=== PATIENT | male | born 1995 | race African-American/Black ===

== ENCOUNTER 2019-11-16 17:22 | Emergency (ER) | payer SELFPAY ==
[~2019-11-16] VITALS: Ht 157.5 cm; Wt 93.0 kg
[2019-11-16] MEDS ORDERED: AMOXICILLIN/POTASSIUM CLAVULANATE 875/125MG TAB PO ONE (23:00)
[2019-11-16] MEDS ORDERED: IBUPROFEN 600MG TABLET PO ONE (23:00)
[2019-11-16 23:35] VITALS: BP 119/79
== END 2019-11-16 23:37 | disposition home or self-care (01) ==
LOC: ER 17:22
DX: S61.252A Open bite of right middle finger without damage to nail, initial encounter (principal); W54.0XXA Bitten by dog, initial encounter; Y93.89 Activity, other specified; Y92.89 Other specified places as the place of occurrence of the external cause; Y99.8 Other external cause status; F17.290 Nicotine dependence, other tobacco product, uncomplicated; F12.10 Cannabis abuse, uncomplicated
CPT/HCPCS: 99283